=== PATIENT | male | born 1995 | race Caucasian/White ===

== ENCOUNTER 2024-10-13 01:01 | Emergency (ER) | payer OTHER, SELFPAY ==
[2024-10-13 01:07] VITALS: BP 118/64; PULSE 64; TEMP 36.6; O2SAT 100; BMI 32.1
--- NOTE | 2024-10-13 01:20 | PC.NURSE ---
patient reports diarrhea since Saturday. patient states that he now has right flank pain and some abdominal cramping. patient states that he has been drinking normally but has decreased appetite. denies nausea or vomiting
--- NOTE | 2024-10-13 01:56 | ED_ITS ---
HPI - Nausea/Vomiting/Diarrhea General Chief complaint: Nausea/Vomiting/Diarrhea Stated complaint: NVD Time Seen by Provider: 10/13/24 01:23 Source: patient Mode of arrival: walk-in History of Present Illness HPI Narrative: This 29-year-old male with no significant medical history presents for evaluation of diarrhea since last Saturday. He has had approximately 3 episodes of diarrhea earlier today. He denies any blood in his stool. He is also having some left low back pain and states that when he belches it tastes like rotten eggs. He denies any nausea or vomiting. He has not had any fever. He denies any travel out of the country. He denies any recent antibiotic use or sick contacts. He is not having any abdominal pain. He denies any chest pain or shortness of breath. He is not having any body aches or muscle spasm. Related Data Home Medications ?Medication ?Instructions ?Recorded ?Confirmed No Known Home Medications 10/13/24 10/13/24 Allergies Allergy/AdvReac Type Severity Reaction Status Date / Time No Known Drug Allergies Allergy Verified 10/13/24 01:12 Review of Systems ROS Status of ROS 10 or more systems reviewed and unremark able except as noted in history and below Exam Narrative Exam Narrative: Vital signs and Nursing Notes reviewed: Patient is afebrile with a normal pulse, normal blood pressure, he is not hypoxic with pulse ox of 100% on room air General: Awake, alert, oriented, no acute distress, lying comfortably on the stretcher HEENT: Normocephalic atraumatic, mucous membranes are moist and pink, eyes are clear, normal conjunctiva, vision is grossly intact, posterior pharynx is normal in appearance. Chest: Lungs are clear to auscultation with good air entry, there is no wheezing rhonchi or rales appreciated no accessory muscle use, patient is speaking in complete sentences-no chest wall tenderness to palpation CVS: Regular rate and rhythm S1-S2, no murmurs rubs or gallops, pulses are brisk and equal bilaterally ABD: Soft, nondistended, nontender, no rebound guarding or rigidity, bowel sounds are normal, no pulsatile masses appreciated, no reproducible tenderness, no flank tenderness Extremities: Moving all extremities, no lower extremity tenderness or swelling noted, there is no redness swelling or reproducible tenderness in the left lateral lumbar region where the patient is complaining of pain Skin: Normal in appearance without rash,pallor, petechiae or purpura Neuro: No focal deficits Constitutional Vital Signs, click to edit/add: Last Vital Signs Temp 97.9 F 10/13/24 01:07 Pulse 64 10/13/24 01:07 Resp 16 10/13/24 01:07 BP 118/64 10/13/24 01:07 Pulse Ox 100 10/13/24 01:07 O2 Del Method Room Air 10/13/24 01:07 Course Vital Signs Vital signs: Vital Signs Temperature 97.9 F 10/13/24 01:07 Pulse Rate 64 10/13/24 01:07 Respiratory Rate 16 10/13/24 01:07 Blood Pressure 118/64 10/13/24 01:07 Pulse Oximetry 100 10/13/24 01:07 Oxygen Delivery Method Room Air 10/13/24 01:07 Temperature 97.9 F 10/13/24 01:07 Pulse Rate 64 10/13/24 01:07 Respiratory Rate 16 10/13/24 01:07 Blood Pressure 118/64 10/13/24 01:07 Pulse Oximetry 100 10/13/24 01:07 Oxygen Delivery Method Room Air 10/13/24 01:07 MDM - Nausea/Vomiting/Diarrhea MDM Narrative Medical decision making narrative: This otherwise healthy 29-year-old male presents for evaluation of diarrhea since last Saturday which initially was copious and now has slowed down. He had 3 episodes of diarrhea yesterday. He has not having any nausea or vomiting but states when he belches it taste like rotten eggs. He denies any abdominal pain. He also has some left low back pain. He does not feel like this is from dehydration or cramping pain. He declined any IV fluids or lab work. He states he just wants to be treated for his symptoms. He will be discharged home after receiving a Pepcid and ibuprofen with prescription for Imodium, Protonix and ibuprofen. He was encouraged to follow-up closely with his family physician drink plenty of fluids and return to the emergency department as needed for ongoing or worsening symptoms. Discharge Plan Discharge Chief Complaint: Nausea/Vomiting/Diarrhea Clinical Impression: Diarrhea, Low back pain, Gastritis Patient Disposition: Home, Self-Care Time of Disposition Decision: 01:55 Condition: Good Prescriptions / Home Meds: No Action No Known Home Medications Print Language: [place] Instructions: Gastritis (ED), Acute Diarrhea (ED), Acute Low Back Pain (ED) Referrals: Physician,Non-Staff, MD [Primary Care Provider] - 1 week
[2024-10-13] MEDS: IBUPROFEN 600 MG TABLET PO (02:20)
[2024-10-13] MEDS: FAMOTIDINE 20 MG TABLET PO (02:20)
== END 2024-10-13 02:22 | disposition home or self-care (01) ==
PROVIDERS: Emergency Provider Emergency Medicine
DX: R19.7 Diarrhea, unspecified (principal); M54.50 Low back pain, unspecified; K29.70 Gastritis, unspecified, without bleeding
CPT/HCPCS: 99283